=== PATIENT | female | born 1965 | race American Indian/Alaskan Native ===

== ENCOUNTER 2018-01-31 12:54 | Emergency (ER) | payer OTHER ==
--- NOTE | 2018-01-31 14:00 | RAD REPORT ---
EXAM DESCRIPTION: CT - Head Brain Wo Cont - 01/31/2018 1:38 pm CLINICAL HISTORY: Dizziness COMPARISON: None. TECHNIQUE: Computed axial tomography of the head was obtained. IV contrast was not requested. All CT scans are performed using dose optimization technique as appropriate and may include automated exposure control or mA/KV adjustment according to patient size. FINDINGS: An intracranial bleed is not seen . The ventricles are normal in caliber. No extra-axial fluid collection is noted. Fluid within the sinuses/ mastoids is not seen. IMPRESSION: No acute intracranial abnormality is seen. If patient's symptoms persist MRI of the bra in would be recommended.
[2018-01-31] MEDS ORDERED: DIAZEPAM 5 MG TABLET ONE (14:06)
[2018-01-31 14:55] LABS: Absolute Monocytes 0.4 K/uL (0.1-1.3); Absolute Neutrophil 5.1 K/uL (1.8-8.0); Basophils % 0.6 % (0-1.3); Eosinophils % 0.9 % (0-4.4); Hematocrit 40.2 % (36.0-45.0); Lymphocytes % 26.3 % (15.3-44.8); MCH 30.2 pg (27.0-35.0); Monocytes % 5.5 % (3.3-12.3); RBC Red Blood Cell Count 4.62 M/uL (3.86-4.86)
[2018-01-31 15:13] LABS: Albumin 4.1 g/dL (3.4-5.0); Bilirubin Total 0.4 mg/dL (0.2-1.0); Potassium 3.5 mmol/L (3.5-5.1); Protein, Total 7.7 g/dL (6.4-8.2)
[2018-01-31] MEDS ORDERED: MECLIZINE HCL 12.5 MG TAB ONE (16:57)
--- NOTE | 2018-01-31 18:08 | ER ---
Nurse's Notes [facility] Name: Travis Person Age: 52 yrs Sex: Female : 1965 Arrival Date: 01/31/2018 Time: 13:01 Bed 25 Private MD: Diagnosis: Benign paroxysmal vertigo Presentation: 01/31 13:02 Presenting complaint: EMS states: pt has had sinus infection s/s for three days, on tl3 Amoxicillin and a nasal spray, started abx yersterday, today has general body aches and weakness. Transition of care: patient was not received from another setting of care. Onset of symptoms was January 28, 2018. Risk Assessment: Do you want to hurt yourself or someone else? Patient reports no desire to harm self or others. Initial Sepsis Screen: Does the patient meet any 2 criteria? No. Patient's initial sepsis screen is negative. Does the patient have a suspected source of infection? No. Patient's initial sepsis screen is negative. Care prior to arrival: None. 13:02 Method Of Arrival: EMS: [facility] tl3 13:02 Acuity: TATI 3 tl3 Triage Assessment: 13:04 General: Appears slender, well groomed, well developed, well nourished, Behavior is tl3 flat, quiet. Pain: Complains of pain in generalized. EENT: No signs and/or symptoms were reported regarding the EENT system. Nares with drainage noted. Neuro: Level of Consciousness is awake, alert, obeys commands, Oriented to person, place, time, situation, Appropriate for age. Cardiovascular: Heart tones S1 S2 present Patient's skin is warm and dry. Respiratory: Airway is patent Respiratory effort is even, unlabored, Respiratory pattern is regular, symmetrical. GI: Reports vomiting, x once. : No signs and/or symptoms were reported regarding the genitourinary system. Derm: No signs and/or symptoms reported regarding the dermatologic system. Musculoskeletal: No signs and/or symptoms reported regarding the musculoskeletal system. 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 - Social history:: Smoking status: unknown. - Ebola Screening: : No symptoms or risks identified at this time. Screenin:09 Abuse screen: Denies threats or abuse. Nutritional screening: No deficits noted. tl3 Tuberculosis screening: No symptoms or risk factors identified. Fall Risk None identified. Assessment: 13:09 Reassessment: No changes from previously documented assessment. tl3 14:44 Reassessment: No changes from previously documented assessment. Patient and/or family tl3 updated on plan of care and expected duration. Pain level reassessed. Patient is alert, oriented x 3, equal unlabored respirations, skin warm/dry/pink. pt remains with flat affect, assisted to RR pt did not open her eyes at all and had to be told what to do as far as moving her legs, standing up etc. 16:00 Reassessment: No changes from previously documented assessment. Patient and/or family tl3 updated on plan of care and expected duration. Pain level reassessed. Patient is alert, oriented x 3, equal unlabored respirations, skin warm/dry/pink. 18:02 Reassessment: Patient appears in no apparent distress at this time. No changes from tl3 previously documented assessment. Patient and/or family updated on plan of care and expected duration. Pain level reassessed. Patient is alert, oriented x 3, equal unlabored respirations, skin warm/dry/pink. pt states that she is feeling betterJono at bedside to discuss POC. 18:37 Reassessment: pt unable to tolerate getting out of bed, finally got pt into wheelchair tl3 and out to car. Vital Signs: 13:04 BP 186 / 89; Pulse 86; Resp 18; Temp 98.6; Pulse Ox 100% on R/A; tl3 14:44 BP 177 / 91; Pulse 84; Resp 18; Pulse Ox 100% on R/A; tl3 16:00 BP 174 / 96; Pulse 90; Resp 18; Pulse Ox 100% ; tl3 17:00 BP 169 / 100; Pulse 90; Resp 18; Pulse Ox 98% on R/A; tl3 18:02 BP 151 / 101; Pulse 104; Resp 18; Pulse Ox 100% on R/A; tl3 ED Course: 13:01 Patient arrived in ED. tl3 13:02 Fay Maldonado RN is Primary Nurse. tl3 13:03 Jono Green NP is PHCP. pm1 13:03 Aurelio Barclay MD is Attending Physician. pm1 13:04 Triage completed. tl3 13:04 Arm band placed on right wrist. tl3 13:09 Patient has correct armband on for positive identification. tl3 13:09 No provider procedures requiring assistance completed. Inserted saline lock: 20 gauge tl3 in left antecubital area, using aseptic technique. Blood collected. 13:32 CT Head Brain wo Cont Sent. tl3 13:39 CT Head Brain wo Cont In Process Unspecified. EDMS 18:37 IV discontinued, intact, bleeding controlled, No redness/swelling at site. Pressure tl3 dressing applied. Administered Medications: 13:32 Drug: NS 0.9% 1000 ml Route: IV; Rate: 1000 ml; Site: left antecubital; Delivery: tl3 Primary tubing; 15:15 Follow up: IV Status: Completed infusion; IV Intake: 1000ml tl3 13:40 Drug: Valium 5 mg Route: PO; tl3 18:36 Follow up: Response: No adverse reaction tl3 16:50 Drug: Meclizine 50 mg Route: PO; tl3 18:36 Follow up: Response: No adverse reaction tl3 18:07 Drug: Zofran 4 mg Route: IVP; Infused Over: 2 mins; Site: left antecubital; tl3 18:36 Follow up: Response: No adverse reaction tl3 Intake: 15:15 IV: 1000ml; Total: 1000ml. tl3 Outcome: 18:07 Discharge ordered by . pm1 18:49 Discharged to home via wheelchair. tl3 18:49 Condition: stable 18:49 Discharge instructions given to patient, family, Instructed on discharge instructions, follow up and referral plans. medication usage, Demonstrated understanding of instructions, follow-up care, medications, Prescriptions given X 2. 18:51 Patient left the ED. tl3 Signatures: Dispatcher [employer] EDMS Jono Green NP SHELL SIEVE OPERATOR pm1 Fay Maldonado RN RN tl3
--- NOTE | 2018-01-31 18:08 | EDPHYS ---
Physician Documentation [facility] Name: Travis Person Age: 52 yrs Sex: Female : 1965 Arrival Date: 01/31/2018 Time: 13:01 Bed 25 Private MD: ED Physician Aurelio Barclay HPI: 01/31 13:13 This 52 yrs old Other Female presents to ER via EMS with complaints of Flu Symptoms. pm1 13:13 The patient presents with sense of spinning, with opening her eyes. Onset: The pm1 symptoms/episode began/occurred today. Context: occurred at home, just prior to the episode the patient experienced no apparent symptoms. Modifying factors: The symptoms are alleviated by closing eyes, the symptoms are aggravated by opening her eyes. Associated signs and symptoms: Pertinent positives: nausea, Pertinent negatives: abdominal pain, chest pain, confusion, focal weakness, head injury, headache, numbness, shortness of breath, tingling, vomiting. Severity of symptoms: in the emergency department the symptoms are unchanged. Patient's baseline: Neuro: alert and fully oriented, Motor: no deficits, Ambulation: walks without assistance, Speech: normal. The patient has not experienced similar symptoms in the past. The patient has been recently seen by a physician: the patient's primary care provider, 2 day(s) ago, with different complaint(s), the patient was seen for sinus congestion, and apparently was diagnosed with sinusitis, was given a prescription for antibiotics, amoxicillin and Ruma-D. 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 - Social history:: Smoking status: unknown. - Ebola Screening: : No symptoms or risks identified at this time. ROS: 13:13 Constitutional: Negative for fever, chills, and weight loss, Eyes: Negative for injury, pm1 pain, redness, and discharge, ENT: Negative for injury, pain, and discharge, Neck: Negative for injury, pain, and swelling, Cardiovascular: Negative for chest pain, palpitations, and edema, Respiratory: Negative for shortness of breath, cough, wheezing, and pleuritic chest pain, Abdomen/GI: Negative for abdominal pain, nausea, vomiting, diarrhea, and constipation, Back: Negative for injury and pain, : Negative for injury, bleeding, discharge, and swelling, MS/Extremity: Negative for injury and deformity, Skin: Negative for injury, rash, and discoloration. 13:13 Neuro: Positive for dizziness, Negative for headache, numbness, seizure activity, syncope, tingling, weakness. Exam: 13:13 Constitutional: This is a well developed, well nourished patient who is awake, alert, pm1 and in no acute distress. Head/Face: Normocephalic, atraumatic. ENT: Nares patent. No nasal discharge, no septal abnormalities noted. Tympanic membranes are normal and external auditory canals are clear. Oropharynx with no redness, swelling, or masses, exudates, or evidence of obstruction, uvula midline. Mucous membranes moist. Neck: Trachea midline, no thyromegaly or masses palpated, and no cervical lymphadenopathy. Supple, full range of motion without nuchal rigidity, or vertebral point tenderness. No Meningismus. Chest/axilla: Normal chest wall appearance and motion. Nontender with no deformity. No lesions are appreciated. 13:13 Cardiovascular: Regular rate and rhythm with a normal S1 and S2. No gallops, murmurs, or rubs. Normal PMI, no JVD. No pulse deficits. Respiratory: Lungs have equal breath sounds bilaterally, clear to auscultation and percussion. No rales, rhonchi or wheezes noted. No increased work of breathing, no retractions or nasal flaring. Abdomen/GI: Soft, non-tender, with normal bowel sounds. No distension or tympany. No guarding or rebound. No evidence of tenderness throughout. Back: No spinal tenderness. No costovertebral tenderness. Full range of motion. Skin: Warm, dry with normal turgor. Normal color with no rashes, no lesions, and no evidence of cellulitis. MS/ Extremity: Pulses equal, no cyanosis. Neurovascular intact. Full, normal range of motion. 13:13 Eyes: Pupils: no acute changes, normal size, normal reaction to light, Extraocular movements: intact throughout, Conjunctiva: no acute changes, no chemosis, no excoriation, no exudate, no injection, no subconjunctival hemorrhage no abnormal tearing, Corneas: are normal, no acute changes, Nystagmus: 13:13 Neuro: Orientation: is normal, Motor: moves all fours, strength is normal, strength is 5/5 in all extremities, Sensation: is normal, no obvious gross deficits. Vital Signs: 13:04 BP 186 / 89; Pulse 86; Resp 18; Temp 98.6; Pulse Ox 100% on R/A; tl3 14:44 BP 177 / 91; Pulse 84; Resp 18; Pulse Ox 100% on R/A; tl3 16:00 BP 174 / 96; Pulse 90; Resp 18; Pulse Ox 100% ; tl3 17:00 BP 169 / 100; Pulse 90; Resp 18; Pulse Ox 98% on R/A; tl3 18:02 BP 151 / 101; Pulse 104; Resp 18; Pulse Ox 100% on R/A; tl3 MDM: 13:04 Patient medically screened. pm1 16:24 Data reviewed: vital signs. Data interpreted: Pulse oximetry: on room air is 100 %. pm1 Interpretation: normal. Counseling: I had a detailed discussion with the patient and/or guardian regarding: the historical points, exam findings, and any diagnostic results supporting the discharge/admit diagnosis, lab results, radiology results. 11 13:13 Order name: Flu; Complete Time: 15:33 pm1 01/31 14:18 Order name: CBC with Diff; Complete Time: 15:33 pm1 01/31 13:13 Order name: CT Head Brain wo Cont; Complete Time: 14:02 pm1 01/31 14:18 Order name: CMP; Complete Time: 15:33 pm1 01/31 13:13 Order name: IV Saline Lock; Complete Time: 13:32 pm1 Administered Medications: 13:32 Drug: NS 0.9% 1000 ml Route: IV; Rate: 1000 ml; Site: left antecubital; Delivery: tl3 Primary tubing; 15:15 Follow up: IV Status: Completed infusion; IV Intake: 1000ml tl3 13:40 Drug: Valium 5 mg Route: PO; tl3 18:36 Follow up: Response: No adverse reaction tl3 16:50 Drug: Meclizine 50 mg Route: PO; tl3 18:36 Follow up: Response: No adverse reaction tl3 18:07 Drug: Zofran 4 mg Route: IVP; Infused Over: 2 mins; Site: left antecubital; tl3 18:36 Follow up: Response: No adverse reaction tl3 Disposition: 01/31/18 18:07 Discharged to Home. Impression: Benign paroxysmal vertigo. - Condition is Stable. - Discharge Instructions: Benign Positional Vertigo. - Prescriptions for Zofran 4 mg Oral Tablet - take 1 tablet by ORAL route every 12 hours As needed; 20 tablet. Meclizine 25 mg Oral Tablet - take 1 tablet by ORAL route every 8 hours As needed; 30 tablet. - Medication Reconciliation Form, Thank You Letter form. - Follow up: Emergency Department; When: As needed; Reason: Worsening of condition. Follow up: Private Physician; When: 2 - 3 days; Reason: Recheck today's complaints, Continuance of care, Re-evaluation by your physician. - Problem is new. - Symptoms have improved. Addendum: 02/03/2018 06:47 Co-signature as Attending Physician, Aurelio Barclay MD I agree with the assessment and c yusuf plan of care. Signatures: Dispatcher [employer] EDAL Aurelio Barclay MD MD cha Marinas, Patrick, CROWN WHEEL ASSEMBLER CROWN WHEEL ASSEMBLER pm1 Fay Maldonado RN RN tl3 Corrections: (The following items were deleted from the chart) 01/31 18:51 18:07 01/31/2018 18:07 Discharged to Home. Impression: Benign paroxysmal vertigo. tl3 Condition is Stable. Discharge Instructions: Benign Positional Vertigo. Prescriptions for Valium 2 mg Oral Tablet - take 1 tablet by ORAL route every 8 hours As needed; 20 tablet. and Forms are Medication Reconciliation Form, Thank You Letter, Antibiotic Education, Prescription Opioid Use. Follow up: Emergency Department; When: As needed; Reason: Worsening of condition. Follow up: Private Physician; When: 2 - 3 days; Reason: Recheck today's complaints, Continuance of care, Re-evaluation by your physician. Problem is new. Symptoms have improved. pm1
[2018-01-31] MEDS ORDERED: ONDANSETRON 4 MG/2 ML VIAL ONE (18:12)
== END 2018-01-31 18:51 | disposition home or self-care (01) ==
LOC: ER 12:54
DX: H81.10 Benign paroxysmal vertigo, unspecified ear (principal); I10 Essential (primary) hypertension
CPT/HCPCS: 36415; 70450; 80053; 85025; 87804; 96361; 96374; 99284; J2405